=== PATIENT | female | born 1960 | race Caucasian/White ===

== ENCOUNTER 2022-11-13 11:39 | Outpatient (CLI) | payer BC, SELFPAY | END 2022-11-13 11:40 | disposition home or self-care (01) | PROVIDERS: Visit Provider Family Medicine | DX: Z00.00 Encounter for general adult medical examination without abnormal findings (principal); E66.9 Obesity, unspecified; R73.9 Hyperglycemia, unspecified; E78.2 Mixed hyperlipidemia; F32.A Depression, unspecified; R53.83 Other fatigue | CPT/HCPCS: 80053; 80061; 84443 ==

== ENCOUNTER 2023-04-24 15:01 | Outpatient (CLI) | payer BC, SELFPAY ==
--- NOTE | 2023-04-24 15:20 | MM_ITS ---
Patient: RONAK FORD Facility:?[facility] Patient ID:?[id number] Site Patient ID:?[id number]. Site :?[id number] Study:?XRay-Breast Bilateral 3D W/CAD-04/24/2023 11:07:03 AM Ordering Physician:Siobhan Final Report: BILATERAL DIGITAL SCREENING MAMMOGRAM WITH TOMOSYNTHESIS AND COMPUTER-AIDED DETECTION CLINICAL HISTORY: Routine screening exam. COMPARISON: None. TECHNIQUE: Digital mammogram in CC and MLO projections including computer-aided detection (CAD). Tomosynthesis utilized. BREAST COMPOSITION: There are areas of scattered fibroglandular density. FINDINGS: RIGHT Breast: No suspicious findings. LEFT Breast: Focal asymmetric density upper outer quadrant 6 cm from the nipple. IMPRESSION: LEFT breast asymmetry/mass. RECOMMENDATIONS: Additional mammographic views of the LEFT breast including 3D spot compression CC/MLO. LEFT breast ultrasound may also be required. BI-RADS Category 0: Incomplete: Need Additional Imaging Evaluation and/or Prior Mammograms for Comparison [facility] will contact the patient for follow-up. A lay language report of this examination will be provided to the patient. Dictated by Alex Larkin MD @ 05/12/2023 10:32:21 AM jj/Dictated by: Alex Larkin MD @ 05/12/2023 10:32:00 AM Signed by:?Alex Larkin MD @05/12/2023 12:07:12 PM (Electronic Signature)
== END 2023-04-24 15:02 | disposition home or self-care (01) ==
PROVIDERS: Visit Provider Family Medicine
DX: Z12.31 Encounter for screening mammogram for malignant neoplasm of breast (principal); N63.20 Unspecified lump in the left breast, unspecified quadrant
CPT/HCPCS: 77063; 77067

== ENCOUNTER 2023-05-26 10:38 | Outpatient (CLI) | payer BC, SELFPAY ==
--- OUTSIDE RECORDS SUMMARY | 2023-05-26 10:42 | XMS_ITS | Clinical Summary ---
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 1 Bottle 11 02/20/2011 Active SUMAtriptan (IMITREX) 50 mg tablet Take 1 tablet by mouth every 2 hours if needed for Migraine. Max dose: 200mg per 24 hrs. 9 tablet 11 06/14/2011 Active FLUoxetine (PROZAC) 40 mg capsule Take 40 mg by mouth once daily. 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 Past 2 days having headaches and sinus pressure. Some post nasal drainage./) 02/27/2023 Travel from Last 3 Months Immunizations Name Administration Dates Next Due Amb Influenza, Inact (High-d ose) (Flu Clinic Only) 11/28/2010 Influenza, IIV3 (Age >=3 years) 12/05/19 10,12/16/2007,12/03/2004, 3 Tdap 09/25/2010 Family History Medical History Relation Name Comments Other Daughter 4 CP Heart Disease Mother Allergies Sister 2 Relation Name Status Comments Brother Alive Daughter 1 Alive Daughter 2 Alive Daughter 3 Alive Daughter 4 Father Alive Maternal Grandfather Maternal Grandmother Mother Alive Paternal Grandfather Paternal Grandmother Sister 1 Alive Sister 2 Social History Tobacco Use Types Packs/Day Years Used Date Smoking Tobacco: Never Smokeless Tobacco: Never Comments:no exposure Alcohol Use Standard Drinks/Week Comments Yes 0 (1 standard drink = 0.6 oz pur e alcohol) Social Connections Answer Date Recorded Frequency of Communication with Friends and Fami ly Not on file 02/27/2023 Sex and Gender Information Value Date Recorded Sex Assigned at Not on file Gender Identity Not on file Sexual Orientation Not on file Obstetrics History Last Filed Vital Signs Vital Sign Reading Time Taken Comments Blood Pressure 120/80 02/27/2023 10:30 AM 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 Pulse 62 02/27/2023 10:30 AM 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 SETTER Temperature 36.6 ??C (97.9 ??F) 02/27/2023 1 0:30 AM 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 SETTER Respiratory Rate 16 07/03/2011 12:4 9 PM CDT Oxygen Saturation 95% 02/27/2023 10: 30 AM 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 SETTER Inhaled Oxygen Concentration - - Weight 100.6 kg (221 lb 11.2 oz) 2023 10:30 AM 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 SETTER Height 175.3 cm (5' 9) 07/03/2011 12:4 9 PM CDT Body Mass Index - - Plan of Treatment Health Maintenance Due Date Last Done Comments Depression screening for age 12+ 1971 HIV for age 15-65 12/24/1974 BMI (ht and wt on same day) for age 18+ 12/24/1977 Hepatitis C screening for age 18-79 12/24/1977 Zoster (shingles) series for age 50+ (1 of 2) 12/24/2009 Mammogram for age 45-75 06/05/2010 06/05/2009 Colonoscopy through age 75 05/31/2015 05/30/2005 Lipids for age 45-75 09/26/2015 09/25/2010 Tetanus booster 09/25/2020 09/25/2010 Influenza for age 50-64 10/11/2023 12/05/19, 12/16/2007, 12/03/2004, Additional history exists Pap test for age 21-65 01/06/2026 01/06/2023, 2022 Tdap Completed 09/25/2010 COVID-19 vaccine series Completed 12/16/2022 Pneumococcal series for age 6-64 Aged Out No longer eligible based on patient's age to complete this topic Procedures Procedure Name Priority Date/Time Associated Diagnosis Comments HPV THIN PREP Routine 01/06/2023 1:23 PM 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 SETTER LIPID PANEL Routine 09/25/2010 9:15 AM CDT Screening for lipoid disorders SCAN-MAMMOGRAPHY REPORT 06/05/2009 12:00 AM CDT HM COLONOSCOPY Routine 05/30/2005 12:00 AM CDT from Last 3 Months or Most Recently Relevant to Health Maintenance Results * HPV HIGH RISK (01/06/2023 1:23 PM 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 SETTER) TYPE 16 Negative Negative 01/13/2023 5:06 PM 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 SETTER [facility] TYPE 18 Negative Negative 01/13/2023 5:06 PM 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 SETTER [facility] OTHER HIGH RISK TYPES Negative Negative 01/13/2023 5:06 PM 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 SETTER [facility] Other (Cervical/Vagina l) 01/06/2023 1:23 PM 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 SETTER 01/08/2023 12:53 PM 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 SETTER Narrative [facility] - 01/13/2023 5:06 PM 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 SETTER HPV types 16, 18, 31, 33, 35, 39, 45, 51, 52, 56, 58, 59, 66 and 68 DNA were undetectable or below the pre-set threshold. Methodology: Diane Kings 4800 HPV Test Nona Ferrer MD MICROBIOLOGY [facility] [address] [place] [address], * (ABNORMAL) LIPID PANEL (09/25/2010 9:15 AM CDT) CHOLESTEROL,TOTAL 214(H) <200 mg/dL L [facility] TRIGLYCERIDES 41 40 - 150 mg/dL [facility] HDL CHOLESTEROL 77 >40 mg/dL [facility] LDL CHOLESTEROL 129 mg/dL [facility] CHOL/HDL RATIO 2.78 Ratio [facility] Blood specimen (specimen) BLOOD SPECIMEN / Unknown 09/25/2010 9:15 AM CDT 09/25/2010 9:15 AM CDT Natalia Holt [facility]MI[facility] [address] [place] [address] * SCAN-MAMMOGRAPHY REPORT (06/05/2009 12:00 AM CDT) Anatomical Region Laterality Modality Other Narrative 06/05/2009 12:00 AM CDT Procedure Note Molly Streeter - 06/07/2009 3:52 PM CDT Molly Streeter OTHER * COLONOSCOPY (05/30/2005 12:00 AM CDT) COLONOSCOPY Done 05/30/2005 Molly Streeter [facility] MA[facility] RESULTS from Last 3 Months or Most Recently Relevant to Health Maintenance Care Teams Physician Advisor Relationship Specialty Start Date End Date Molly Streeter PCP - General 04/24/09
--- NOTE | 2023-05-26 10:45 | MM_ITS ---
Patient: RONAK FORD Facility:?[facility] Patient ID:?[id number] Site Patient ID:?[id number]. Site :?[id number] Study:?XRay-Breast Left 3D Diagnostiic mammogram w/cad-05/26/2023 11:06:18 AM Ordering Physician:JUAN F Final Report: LEFT DIGITAL DIAGNOSTIC MAMMOGRAM WITH TOMOSYNTHESIS AND COMPUTER-AIDED DETECTION LEFT BREAST ULTRASOUND CLINICAL HISTORY: LEFT breast mass/asymmetry. COMPARISON: 04/24/2023 TECHNIQUE: Digital LEFT mammogram in 2 projections with tomosynthesis and computer-aided detection. Real-time ultrasound imaging of LEFT breast with imaging documentation. BREAST COMPOSITION: There are scattered areas of fibroglandular density. FINDINGS: 3D spot compression CC/MLO LEFT breast mammogram images submitted. Decreased conspicuity of asymmetric density within the LEFT breast. Punctate benign calcification also noted. No suspicious calcifications. No architectural distortion. Targeted LEFT breast ultrasound performed at 1 o`clock 6 cm from the nipple. Normal fibroglandular tissue is present. No fibrocystic change. No suspicious mass. IMPRESSION: No evidence of malignancy. RECOMMENDATIONS: Annual BILATERAL screening mammography. BI-RADS Category 2: Benign. Results and recommendations discussed with the patient. A lay language report of this examination will be provided to the patient. Dictated by Alex Larkin MD @ 05/26/2023 11:47:29 AM CRL:mary RD/Dictated by: Alex Larkin MD @ 05/26/2023 11:47:00 AM Signed by:?Alex Larkin MD @05/26/2023 1:01:18 PM (Electronic Signature)
--- NOTE | 2023-05-26 11:15 | US_ITS ---
Patient: RONAK FORD Facility:?[facility] Patient ID:?[id number] Site Patient ID:?[id number]. Site :?1960 Study:?US-Breast Left LT BREAST LMT / DR. ESTRADA TO READ-05/26/2023 11:22:40 AM Ordering Physician:?GETACHEW SIEGEL M.D. Final Report: PLEASE SEE LEFT DIAGNOSTIC MAMMOGRAM OF SAME DAY FOR COMBINED REPORT. CRL:mary RD/Dictated by: Alex Estrada MD @ 05/26/2023 11:47:00 AM Signed by:?Alex Estrada MD @05/26/2023 1:01:20 PM (Electronic Signature)
== END 2023-05-26 10:39 | disposition home or self-care (01) ==
LOC: MAMMO 10:38
PROVIDERS: PCP Family Medicine; Visit Provider Family Medicine
DX: N63.20 Unspecified lump in the left breast, unspecified quadrant (principal); R92.8 Other abnormal and inconclusive findings on diagnostic imaging of breast
CPT/HCPCS: 76642; 77065; G0279

== ENCOUNTER 2023-09-15 16:45 | Outpatient (RCR) | payer BC, SELFPAY | END 2024-01-13 23:59 | disposition home or self-care (01) | PROVIDERS: PCP Family Medicine; Visit Provider Family Medicine | DX: M54.9 Dorsalgia, unspecified (principal); G89.29 Other chronic pain; Z51.89 Encounter for other specified aftercare | CPT/HCPCS: 97110; 97140; 97162 ==